=== PATIENT | female | born 1990 | race Caucasian/White ===

== ENCOUNTER 2019-10-19 11:53 | Emergency (ER) | payer OTHER ==
[~2019-10-19] VITALS: Ht 167.6 cm; Wt 61.2 kg
--- NOTE | 2019-10-19 12:15 | NUR ---
PT WAS EVALUATED BY DR SMITH. PT WAS D/C'd TO HOME. VERBAL D/C INSTRUCTIONS GIVEN TO THE PTBY DR SMITH.
[2019-10-19 12:17] VITALS: BP 129/77
== END 2019-10-19 12:17 | disposition home or self-care (01) ==
LOC: ER 11:53
DX: Z09 Encounter for follow-up examination after completed treatment for conditions other than malignant neoplasm (principal); Z86.19 Personal history of other infectious and parasitic diseases
CPT/HCPCS: 99283; U0003; A4663

== ENCOUNTER 2021-01-20 15:31 | Emergency (ER) | payer BC, OTHER ==
[~2021-01-20] VITALS: Ht 167.6 cm; Wt 59.0 kg
[2021-01-20] MEDS ORDERED: CEPH250C PO (16:23)
--- NOTE | 2021-01-20 16:30 | NUR ---
Patient discharged to home in stable condition. Written and verbal after care instructions given. Patient verbalizes understanding of instructions. Stressed follow up or return to ER for worsening s/s.
== END 2021-01-20 16:42 | disposition home or self-care (01) ==
LOC: ER 15:41
DX: L03.113 Cellulitis of right upper limb (principal); S50.861A Insect bite (nonvenomous) of right forearm, initial encounter; W57.XXXA Bitten or stung by nonvenomous insect and other nonvenomous arthropods, initial encounter; Y92.89 Other specified places as the place of occurrence of the external cause
CPT/HCPCS: A4663

== ENCOUNTER 2022-06-10 14:02 | Outpatient (CLI) | payer BC, OTHER ==
[~2022-06-10 14:02] MED LIST: CEPH250C PO
== END 2022-06-10 23:59 | disposition home or self-care (01) ==
LOC: US 14:02
PROVIDERS: ATTEND Nurse Practitioner Primary Care
DX: R10.2 Pelvic and perineal pain (principal)
CPT/HCPCS: 76856